=== PATIENT | female | born 1990 | race Caucasian/White ===

== ENCOUNTER 2025-01-05 16:14 | Outpatient (REF) | payer MEDICAID, SELFPAY ==
[2025-01-05 17:37] LABS: MANUAL DIFF FLAG NO
[2025-01-05 17:47] LABS: Hematocrit 40.2 % (37.0-47.0); Hemoglobin 13.1 g/dl (12.0-16.0); Imm Gran Abs Auto 0.04 X10*3/uL (0.00-0.03); Imm Gran Pct Auto 0.3 % (0.0-0.4); Lymphocytes Absolute Auto 4.0 X10*3/uL (1.2-4.9); Mean Corpuscular HGB Conc 32.6 g/dl (31.0-35.0); Mean Corpuscular Hemoglobin 26.2 pg (27.0-33.0); Mean Corpuscular Volume 80.4 fL (80.0-98.0); NRBC Abs Auto 0.000 X10*3/uL (0.0-0.012); NRBC Pct Auto 0.0 /100WBC (0.0-0.2); Platelet Count 521 X10*3/uL (160-400); Red Blood Count 5.00 X10*6/uL (4.20-5.50); White Blood Count 11.7 X10*3/uL (4.8-10.8)
[2025-01-05 18:03] LABS: Alanine Aminotransferase 20 U/L (0-31); Albumin Level 5.0 g/dL (3.5-5.0); Alkaline Phosphatase 135 U/L (39-117); Anion Gap 13 (12-20); Aspartate Amino Transferase 20 U/L (5-31); Blood Urea Nitrogen 18 mg/dL (9-16); Calcium 9.5 mg/dL (8.4-10.2); Carbon Dioxide 28 mmol/L (22-29); Chloride 107 mmol/L (96-108); Estimated Glomerular Filt Rate > 60; Iron 58 mcg/dL (30-160); Percent Iron Saturation 18 % (15-50); Potassium 3.7 mmol/L (3.3-5.1); Sodium 144 mmol/L (135-145); Total Iron Binding Capacity 328 mcg/dL (228-428); Total Protein 8.0 g/dL (6.5-8.0); Unsaturated Iron Binding 270 ug/dL
[2025-01-05 18:18] LABS: Ferritin 36 ng/mL (10-122)
[2025-01-06 07:04] LABS: Hemoglobin A1C 135.2084 umol/L; Total Hemoglobin (HGBA1C) 3523.1362 umol/L
[2025-01-09 13:38] LABS: Anti Nuclear Antibody Pattern Nuclear, Speckled; Anti Nuclear Antibody Screen POSITIVE (NEGATIVE); Anti Nuclear Antibody Titer 1:40 titer
== END 2025-01-05 16:15 | disposition home or self-care (01) ==
LOC: HO.HHCL 16:14
PROVIDERS: Internal Medicine; PCP Internal Medicine; Visit Provider Internal Medicine
DX: Z01.84 Encounter for antibody response examination (principal); M32.9 Systemic lupus erythematosus, unspecified; I10 Essential (primary) hypertension; D50.0 Iron deficiency anemia secondary to blood loss (chronic)
CPT/HCPCS: 36415; 80053; 82728; 83036; 83540; 84443; 85025; 85652; 86038; 86039

== ENCOUNTER 2025-06-03 12:14 | Outpatient (REF) | payer MEDICAID, SELFPAY ==
--- OUTSIDE RECORDS SUMMARY | 2025-06-02 15:30 | XMS_ITS | Encounter Summary ---
Author Organization [employer] Address [address] [place] [id number] Care Team Providers Care Uph[employer]ered [employer]s [employer]fter Name Role Phone Mali Buchanan NP Primary Care Provider [phone] Reason for Referral * Consultation (Routine) - Authorized Specialty Diagnoses / Procedures Referred By Fabricio shi Referred To Contact Rheumatology Diagnoses PARTH positive Mali Buchanan NP [address] [place] [address] Phone: tel: fax: [facility] Rheumatology [address] [place] [address] Phone: tel: fax: Referral ID Status Reason Start Date Expiration Date Visits Requested Visits Authorized [id number] Authorized Specialty Services Required 06/03/2026 6 6 * Imaging (Urgent) - Authorized Specialty Diagnoses / Procedures Referred By Fabricio shi Referred To Contact Radiology Diagnoses Menorrhagia with regular cycle Abnormal uterine bleeding Procedures US Pelvis Transvaginal Mali Buchanan NP [address] [place] [address] Phone: tel: fax: [facility] [address] [place] [id number] Phone: tel: fax: Referral ID Status Reason Start Date Expiration Date V isits Requested Visits Authorized [id number] Authorized 06/02/2025 06/02/2026 1 1 Encounter Details Date Type Department Care Team (Late st Contact Info) Description 06/02/2025 3:30 PM EST Office Visit [facility] [address], [place] [id number] Mali Buchanan NP [address], [place] [id number] Menorrhagia with regular cycle (Primary Dx); Class 1 obesity with body mass index (BMI) of 34.0 to 34.9 in adult, unspecified obesity type, unspecified whether serious comorbidity present; Abnormal uterine bleeding; PARTH positive Social History Tobacco Use Types Packs/Day Years Used Date Smoking Tobacco: Never Passive Smoke Exposure: Never Smokeless Tobacco: Never Depression Answer Date Recorded Patient Health Questionnaire-9 Score 2 12/15/2024 Patient Health Questionnaire-9 Score 2 12/15/2024 Last PHQ-9: Questionnaire Data Not on file 0 12/15/2024 Housing Stability Answer Date Recorded What is your housing situation today? I have mary zavala 06/02/[address] you li ve. Do you have problems with any of the following? Oven or stove not working;Water leaks 06/02/2025 Food Insecurity Answer Date Recorded Within the past 12 months, y ou worried that your food would run out before you got money to buy more: Sometimes True 2024 Within the past 12 months,th e food you bought just didn't last and you didn't have enough money to get more: Never True 06/02/2025 Transportation Answer Date Recorded In the past 12 months, has l ack of transportation kept you from medical appts, meetings, work or from getting things needed for daily living? Yes, it has kept me from medical appointments or getting medications. 06/02/2025 Utilities Answer Date Recorded In the past 12 months, has t he electric, gas, oil or water company threatened to shut off services in your home? Yes 06/02/2025 Depression Answer Date Recorded Patient Health Questionnaire-2 Score 2 12/15/2024 Internet Access Answer Date Recorded Internet Access Q1 No 06/02/2025 Internet Access Q2 My internet/Wi-Fi ac cess is not consistent or reliable 06/02/2025 Comments No Sex and Gender Information Value Date Recorded Sex Assigned at Female 12/15/2024 12:38 PM EDT Legal Sex Female 12:34 PM EDT Gender Identity Female 12/15/2024 12:38 PM EDT Sexual Orientation Straight 12/15/2024 12 :38 PM EDT documented as of this encounter Last Filed Vital Signs Vital Sign Reading Time Taken Comments Blood Pressure 146/92 06/02/2025 3:43 PM EST Pulse 128 06/02/2025 3:43 PM EST Temperature 36.5 C (97.7 F) 06/02/2025 3:43 PM EST Respiratory Rate 14 06/02/2025 3:43 PM EST Oxygen Saturation 96% 06/02/2025 3:43 PM EST Inhaled Oxygen Concentration - - Weight 91.2 kg (201 lb) 06/02/2025 3:43 PM EST Height 157.5 cm (5' 2 ) 06/02/2025 3:43 PM EST Body Mass Index 36.76 06/02/2025 3:43 PM EST documented in this encounter Functional Status * SBIRT - Alcohol Question Answer Date of Assessment Author How many times in the past y ear have you had 5 or more (for men) or 4 or more (for women) drinks in a day? 0 06/02/2025 5:18 PM EST Cierra Mora MA Score 0 06/02/2025 5:18 PM EST Cierra Murphy MA * SBIRT - Drugs Question Answer Date of Assessment Author How many times in the past y ear have you used an illegal drug or used a prescription medication for non-medical reasons? 0 06/02/2025 5:18 PM EST Cierra Mora MA Score 0 06/02/2025 5:18 PM EST Cierra Murphy MA documented as of this encounter Progress Notes * Mali Buchanan NP - 06/02/2025 3:30 PM EST Oswaldo Muñiz, age 35, female - Reports legs very swollen since starting blood pressure medication - , difficulty stopping despite desire to wean - Blood pressure remains high without medication - Labetalol previously tried, not effective for blood pressure, did not help leg swelling - Compression stockings used, owns two pairs - Menstrual periods lasting approximately 15 days each month - Reports severe pelvic pain during menstruation, described as feeling like a knife inside the uterus - IUD placed after delivery at hospital, unable to be located at gynecology visit last month (April 2025) - Unable to schedule recommended ultrasound due to work constraints - Hair and nails described as very fragile and weak - Sex life currently absent, unable to recognize self hormonally - Reports sleeping only 2-3 hours per night, total of 14 hours per week, single mother with significant stress - Sertraline (Zoloft) taken, helps relax during the day but no improvement in sleep or energy - Difficulty finding Bangl[place]hi-speaking therapist - PARTH test for lupus previously ordered, referral issues, has not received phone call or letter, denies any symptoms of lupus - Reports feeling overwhelmed, significant physical fatigue, responsible for children and household - Expresses desire for more energy, asks about iron and vitamins Problem List[1] Medical History[2] Allergies[3] Review of Systems Constitutional: Negative for activity change and appetite change. Respiratory: Negative for apnea and chest tightness. Genitourinary: Positive for menstrual problem. Negative for difficulty urinating. BP (!) 146/92 (BP Location: Right arm, Patient Position: Sitting, BP Cuff Size: Large adult) Pulse (!) 128 Temp 97.7 ??F (36.5 ??C) (Oral) Resp 14 Ht 5' 2 (1.575 m) Wt 201 lb (91.2 kg) LMP 05/17/2025 (Approximate) SpO2 96% BMI 36.76 kg/m?? Physical Exam Vitals reviewed. Constitutional: Appearance: She is obese. HENT: Head: Normocephalic and atraumatic. Nose: Nose normal. Eyes: Conjunctiva/sclera: Conjunctivae normal. Cardiovascular: Rate and Rhythm: Normal rate and regular rhythm. Pulmonary: Effort: Pulmonary effort is normal. Breath sounds: Normal breath sounds. Abdominal: Palpations: There is no mass. Tenderness: There is abdominal tenderness. There is no guarding. Musculoskeletal: Cervical back: Normal range of motion and neck supple. Neurological: General: No focal deficit present. Mental Status: She is alert. - CARDIOVASCULAR: Blood pressure noted to be slightly elevated, but not dangerous. - EXTREMITIES: Edema in lower extremities observed. Results: No visits with results within 28 Day(s) from this visit. Latest known visit with results is: Office Visit on 01/05/2025 Component Date Value Ref Range Status White Blood Count 01/05/2025 11.7 (H) 4.8 - 10.8 X10*3/uL Final Red Blood Count 01/05/2025 5.00 4.20 - 5.50 X10*6/uL Final Hemoglobin 01/05/2025 13.1 12.0 - 16.0 g/dl Final Hematocrit 01/05/2025 40.2 37.0 - 47.0 % Final Mean Corpuscular Volume 01/05/2025 80.4 80.0 - 98.0 fL Final Mean Corpuscular Hemoglobin 01/05/2025 26.2 (L) 27.0 - 33.0 pg Final Mean Corpuscular HGB Conc 01/05/2025 32.6 31.0 - 35.0 g/dl Final Red Cell Distribution Width 01/05/2025 15.3 11.0 - 16.0 % Final Platelet Count 01/05/2025 521 (H) 160 - 400 X10*3/uL Final Mean Platelet Volume 01/05/2025 8.8 (L) 9.4 - 12.3 fL Final Neutrophils Percent Auto 01/05/2025 55.1 45 - 73 % Final Imm Gran Pct Auto 01/05/2025 0.3 0.0 - 0.4 % Final Lymphocytes Percent Auto 01/05/2025 34.3 20 - 40 % Final Monocytes Percent Auto 01/05/2025 7.9 2 - 11 % Final Eosinophils Percent Auto 01/05/2025 1.9 0 - 4 % Final Basophils Percent Auto 01/05/2025 0.5 0 - 2 % Final NRBC Pct Auto 01/05/2025 0.0 0.0 - 0.2 /100WBC Final Neutrophils Absolute Auto 01/05/2025 6.4 2.0 - 8.3 x10*3/uL Final Imm Gran Abs Auto 01/05/2025 0.04 (H) 0.00 - 0.03 X10*3/uL Final Lymphocytes Absolute Auto 01/05/2025 4.0 1.2 - 4.9 X10*3/uL Final Monocytes Absolute Auto 01/05/2025 0.9 0.1 - 1.2 X10*3/uL Final Eosinophils Absolute Auto 01/05/2025 0.2 0.0 - 0.4 X10*3/uL Final Basophils Absolute Auto 01/05/2025 0.1 0.0 - 0.2 X10*3/uL Final NRBC Abs Auto 01/05/2025 0.000 0.0 - 0.012 X10*3/uL Final Ferritin 01/05/2025 36 10 - 122 ng/mL Final Iron 01/05/2025 58 30 - 160 mcg/dL Final Total Iron Binding Capacity 01/05/2025 328 228 - 428 mcg/dL Final Percent Iron Saturation 01/05/2025 18 15 - 50 % Final Unsaturated Iron Binding 01/05/2025 270 ug/dL Final Assessment & Plan Menorrhagia with regular cycle Orders: CBC auto differential; Future TSH W/Reflex to FT4; Future US Pelvis Transvaginal; Future Class 1 obesity with body mass index (BMI) of 34.0 to 34.9 in adult, unspecified obesity type, unspecified whether serious comorbidity present Orders: Comprehensive Metabolic Panel; Future Hemoglobin A1c; Future Abnormal uterine bleeding Orders: US Pelvis Transvaginal; Future PARTH positive Orders: Referral to Rheumatology; Future Assessment & Plan Menorrhagia with regular cycle: - Menorrhagia with regular cycle, ongoing for approximately 15 days per cycle. Associated with significant pelvic pain described as like a knife inside the uterus. IUD placement after delivery, currently unable to be located by manager income tax. - Ordered pelvic ultrasound to evaluate IUD position and investigate cause of abnormal bleeding andpain. Recommended scheduling ultrasound at [facility]. Will perform blood work including thyroid and anemia panel. Follow-up in 4 to 6 weeks or sooner as needed. Class 1 obesity with body mass index (BMI) of 34.0 to 34.9 in adult, unspecified obesity type, unspecified whether serious comorbidity present: - Class 1 obesity, BMI 34.0-34.9. Weight loss discussed; options limited due to ongoing . - Advised to defer pharmacologic weight loss interventions until is discontinued. Will revisit weight management options after chapter is complete. Abnormal uterine bleeding: - Abnormal uterine bleeding with prolonged menses and associated pelvic pain. Etiology to be further evaluated. - Ordered pelvic ultrasound and blood work (thyroid, anemia panel) to assess for underlying causes.Follow-up planned after results. PARTH positive: - PARTH positive blood test previously obtained. No symptoms suggestive of lupus. Referral to [facility] placed for expert interpretation of PARTH result. - Re-sent referral to [facility] for further evaluation. Advised to call back with any questions or concerns. Edema in lower extremities: - Edema in lower extremities, possibly related to antihypertensive therapy. Limited options for medication adjustment due to . - Discussed use of compression stockings; patient already has two pairs. No change in antihypertensive regimen until is discontinued. Sleep disturbance and fatigue: - Sleep disturbance and fatigue, likely multifactorial including stress, single parenting, and possible anemia or thyroid dysfunction. - Prescribed hydroxyzine for occasional use to aid sleep, with instructions to avoid overnight after use. Increased sertraline dose to 50 mg daily. Ordered blood work to evaluate for anemia and thyroid dysfunction. Advised to continue iron supplementation and vitamins if not already taking. Follow-up in 4 to 6 weeks. Depressed mood and decreased libido: - Depressed mood, decreased libido, and anhedonia. Contributing factors include stress, sleep deprivation, and general health. Sertraline may provide indirect benefit. - Increased sertraline dose to 50 mg daily. Encouraged to seek Bangladeshi- speaking therapist for additional support. Offered more acute mental health workup if feeling overwhelmed or experiencing thoughts of self-harm. Follow-up in 4 to 6 weeks. Prescription - Sertraline increased to 50 mg daily; until new prescription available, take two tablets of current strength daily - Hydroxyzine at bedtime as needed for sleep; unknown breast-milk excretion, advise to avoid overnight because of short-acting profile Current Medications[4] Based on our discussion, I have outlined the following instructions for you: - Schedule and complete a pelvic ultrasound at [facility]. - Get blood tests done to check for thyroid problems and anemia (low iron). - Continue wearing your compression stockings for leg swelling. - Do not change your blood pressure medication until you have stopped . - Take hydroxyzine at bedtime if you need help sleeping, but do not breastfeed overnight after taking it. - Take sertraline at the new dose of 50 mg every day. - Continue taking your iron tablets and vitamins if you are not already doing so. - Try to find a Bangladeshi-speaking therapist for extra support. - If you ever feel overwhelmed or have thoughts of harming yourself, ask for more immediate mental health help. - If you have any questions or concerns, call the clinic. Next appointment(s): - Follow-up in 4 to 6 weeks or sooner as needed. - Referral to [facility] placed for expert interpretation of PARTH result. - Re-sent referral to [facility] for further evaluation. This note was drafted using Ambient (AI) technology. The patient/patient's guardian has been informed and has consented to the use of this technology: Yes Visit Conducted in: Bangl[place]hi Translation by: Provided by [employer] Service ID # [id number] [1] Patient Active Problem List Diagnosis Adjustment disorder with anxious mood Primary hypertension SLE (systemic lupus erythematosus related syndrome) ([facility]) ([facility]) Iron deficiency anemia due to chronic blood loss Obesity due to excess calories with serious comorbidity Insulin controlled gestational diabetes mellitus (GDM) during , antepartum Adjustment reaction with anxiety and depression Hypertension PARTH positive [2] No past medical history on file. [3] No Known Allergies [4] Current Outpatient Medications: Blood Pressure Monitoring (Blood Pressure Cuff) [facility] [place] [place], Use daily as prescribed, Disp: 1 each, Rfl: 0 ferrous sulfate 324 (65 Fe) MG EC tablet, Take 1 tablet (324 mg) by mouth Once per day., Disp: 90 tablet, Rfl: 0 NIFEdipine CC (Adalat CC) 30 MG 24 hr tablet, Take 1 tablet (30 mg) by mouth before breakfast. Do not crush, chew, or split., Disp: 90 tablet, Rfl: 0 sertraline (Zoloft) 50 MG tablet, Take 1 tablet (50 mg) by mouth Once per day., Disp: 30 tablet, Rfl: 1 documented in this encounter Miscellaneous Notes * Assessment & Plan Note - Mali Buchanan NP - 06/02/2025 3:30 PM ESTAssociated Problem(s): PARTH positive Orders: Referral to Rheumatology; Future documented in this encounter Plan of Treatment Upcoming Encounters Date Type Department Care Team (Late st Contact Info) Description 07/02/2025 11:00 AM EST Nutrition [facility] [address] [place] [address] Danilohermelinda Geetha, RD [address] [place] [address] Scheduled Orders Name Type Priority Associated Diagnoses Orde r Schedule CBC auto differential Lab Routine Menorrhagia with regular cycle Expected: 06/02/2025 (Approximate), Expires: 06/02/2026 TSH W/Reflex to FT4 Lab Routine Menorrhagia with regular cycle Expected: 06/02/2025 (Approximate), Expires: 06/02/2026 Comprehensive Metabolic Panel Lab Routine Class 1 obesity with body mass index (BMI) of 34.0 to 34.9 in adult, unspecified obesity type, unspecified whether serious comorbidity present Expected: 06/02/2025 (Approximate), Expires: 06/02/2026 Hemoglobin A1c Lab Routine Class 1 obesity with body mass index (BMI) of 34.0 to 34.9 in adult, unspecified obesity type, unspecified whether serious comorbidity present Expected: 06/02/2025 (Approximate), Expires: 06/02/2026 US Pelvis Transvaginal Imaging Urgent Menorrhagia with regular cycle Abnormal uterine bleeding Expected: 06/02/2025, Expires: 06/02/2026 Scheduled Referrals Name Type Priority Associated Diagnoses Order Schedule Referral to Rheumatology Outpatient Referral Routine PARTH positive Expected: 06/02/2025 (Approximate), Expires: 06/02/2026 documented as of this encounter Visit Diagnoses Diagnosis Menorrhagia with regular cycle- Primary Class 1 obesity with body mass index (BMI) of 34.0 to 34.9 in adult, unspecified obesity type, unspecified whether serious comorbidity present Abnormal uterine bleeding Unspecified disorder of menstruation and other abnormal bleeding from female genital tract PARTH positive documented in this encounter Additional Health Concerns Assessment Noted Time PHQ-9 Depression Total Score: 2 12/16/19 25 2:00 PM EDT documented as of this encounter Care Teams Uph[employer]ered [employer]s [employer]fter Relationship Specialty Start Date End Date Mali Buchanan NP [address] [place] [address] PCP - General Family Medicine 01/12/25 documented as of this encounter
[2025-06-03 13:52] LABS: MANUAL DIFF FLAG NO
--- OUTSIDE RECORDS SUMMARY | 2025-06-03 14:03 | XMS_ITS | Clinical Summary ---
Author Organization [employer] Address [address] [facility] 7 [place] [address] Care Team Providers Care Bookkeeper Receptionist Name Role Phone Mali Buchanan HEIDY Primary Care Provider [phone] Allergies No known active allergies Medications * This document contains information received from the source organization and may not represent a complete record from that organization. ferrous sulfate 324 (65 Fe) MG EC tablet Take 1 tablet (324 mg) by mouth Once per day. 90 tablet 12/16/19 25 Active Blood Pressure Monitoring (Blood Pressure Cuff) misc Use daily as prescribed 1 each 12/16/19 25 Active sertraline (Zoloft) 50 MG tablet Take 1 tablet (50 mg) by mouth Once per day. 30 tablet 1 5 5:34 PM EST 06/02/20 25 026 Active multivitamin () 27-0.8 MG tablet Take 1 tablet by mouth Once per day. 30 tablet 3 5 5:34 PM EST 06/02/20 25 Active NIFEdipine CC (Adalat CC) 30 MG 24 hr tablet Take 1 tablet (30 mg) by mouth before breakfast. Do not crush, chew, or split. 90 tablet 5 5:34 PM EST 06/02/20 25 Active sertraline (Zoloft) 25 MG tablet Take 1 tablet (25 mg) by mouth Once per day. 90 tablet 1 12/16/19 25 025 Discontinued NIFEdipine CC (Adalat CC) 30 MG 24 hr tablet Take 1 tablet (30 mg) by mouth before breakfast. Do not crush, chew, or split. 90 tablet 02/27/20 25 025 Discontinued(Re order (will not trigger notification to Pharmacy)) Active Problems Problem Noted Date Diagnosed Date Hypertension 01/12/2025 Assessment & Plan (02/14/2025 1:55 PM EDT): Continue to measure at home, Focus on rest and sleep reduction, no change to meds today. PARTH positive 01/12/2025 Assessment & Plan (06/02/2025 4:54 PM EST): Orders: Referral to Rheumatology; Future Assessment & Plan (02/14/2025 1:56 PM EDT): Referral to rheumatology Adjustment disorder with anxious mood 12/15/2024 Assessment & Plan (02/14/2025 1:56 PM EDT): Reviewed options of management referral to Primary hypertension 12/15/2024 Assessment & Plan (12/15/2024 5:30 PM EDT): Uncontrolled today erliny bc she didn't take the meds this morning. DC nifedipine due to side effects (leg edema) and start labetalol 100 mg twice daily and follow-up BP with the nurse in 2 to 3 weeks. If BP is not controlled, labetalol can be increased to 200 mg twice daily and follow-up with me or new PCP 3 to 4 weeks later. Counseled re low salt diet/increase moderate physical activity. Check home BP BIW and prn CP/FRANKLIN/RAPHAEL Non smoking patient. SLE (systemic lupus erythema tosus related syndrome) ([facility]) 12/15/2024 Assessment & Plan (12/15/2024 5:31 PM EDT): Unclear diagnosis, will obtain records from [facility] and obtain labs Follow-up with your PCP Iron deficiency anemia due to chronic blood loss 12/15/2024 Assessment & Plan (12/15/2024 5:31 PM EDT): Hb is fairly normal but she continues to have vaginal bleeding, she will continue on Iron supplementation and fu w FINANCE ATTORNEY at [facility]. Advised to fu with new PCP Obesity due to excess calories with serious cassandra rbidity 12/15/2024 Assessment & Plan (12/15/2024 2:52 PM EDT): She's delivery Discussed re weight reduction options including exercise, life style modifications, diet. Recommended to decrease soda and sugary beverage consumption, increase protein intake with meals (at least 1 portion of protein with each meal) to assist with satiety, increase dietary fiber Recommended at least 150 min/week of moderate intensity exercise. Insulin controlled gestation al diabetes mellitus (GDM) during , antepartum 12/15/2024 Assessment & Plan (12/15/2024 5:30 PM EDT): Check BMP and A1c, she has been off medications after delivery. Adjustment reaction with anxiety and depression 12/15/2024 Assessment & Plan (12/15/2024 5:32 PM EDT): Patient with significant S/S depression, DC fluoxetine and start sertraline and follow-up with new PCP in 4 to 6 weeks Patient was evaluated today by counselor and will continue to follow-up, she feels safe at home and is able to reach out for safety, crisis number was given to her. I offered referral to case management coordinator or some of the community litigation paralegal programs but she determines she is connected already with them. Resolved Problems Problem Noted Date Diagnosed Date Resolved Date FANNIE (generalized anxiety disorder) 12/15/2024 12/15/2024 Encounters Date Type Department Care Team Description 06/02/2025 3:30 PM EST Office Visit [facility] MED[facility]INE [address] [place] [id number] Mali Buchanan NP Menorrhagia with regular cycle (Primary Dx); Class 1 obesity with body mass index (BMI) of 34.0 to 34.9 in adult, unspecified obesity type, unspecified whether serious comorbidity present; Abnormal uterine bleeding; PARTH positive 06/02/2025 Travel 05/18/2025 Telephone [facility] MEDICINE [address] [place] [address] Mali Buchanan NP Referral-Rheumatology 05/13/[address] [facility] [address] [place] [address] Mali Buchanan NP Nurse Triage 04/16/2025 Telephone [facility] MEDICINE [address] [place] [address] Mali Buchanan NP Chart Prep 04/16/2025 Telephone [facility] [address] [place] [address] Appointment Request 03/09/2025 Telephone [facility] MED[facility]INE [address] [place] [address] Isabel Huitron RN from Last 3 Months Social History Tobacco Use Types Packs/Day Years Used Date Smoking Tobacco: Never Passive Smoke Exposure: Never Smokeless Tobacco: Never Tobacco Cessation:Counseling Given: Not Answered Depression Answer Date Recorded Patient Health Questionnaire-9 [...] Orientation Straight 12/15/2024 12 :38 PM EDT Last Filed Vital Signs Vital Sign Reading [...] Mass Index 36.76 06/02/2025 3:43 PM EST Plan of Treatment Upcoming Encounters Date Type Department Care Team (Late st Contact Info) Description 07/02/2025 11:00 AM EST Nutrition [facility] DIABETES/NTRN [address] [place] [address] Geetha Arcos, RD [address] [place] [address] Health Maintenance Due Date Last Done Comments HIV Screening 1989 Lipid Panel 1989 Family Planning (PISQ) 2004 Hepatitis C Screening 2007 Hepatitis B Vaccines (1 of 3 - 19+ 3-dose series) 2008 Pap Smear 2010 Cervical Cancer Screening 2019 HPV/Cotest 2019 COVID-19 Vaccine (1 - 2024-2 6 season) 2025 Influenza Vaccine (#1) 2025 05/06/2024 HPV Vaccines (2 - 3-dose series) 02/27/2025 01/30/2025, 01/30/2025 Depression Screening 12/15/2025 12/15/2024, 12/15/2024 Diabetes: Hemoglobin A1C 01/05/2026 01/05/2025 Alcohol/Substance Use Screening 06/02/2026 06/02/2025 Disability Screening 06/02/2026 06/02/2025 SDOH Screening 06/02/2026 06/02/2025 Tobacco Screening 06/02/2026 06/02/2025 DTaP/Tdap/Td Vaccines (2 - T d or Tdap) 07/02/2034 07/02/2024 Zoster Vaccines (1 of 2) 2039 RSV Patients and Patients Aged 60 years or older (1 - 1-dose 75+ series) 2064 HIB Vaccines Aged Out No longer eligi ble based on patient's age to complete this topic Hepatitis A Vaccines Aged Out No long er eligible based on patient's age to complete this topic IPV Vaccines Aged Out No longer eligi ble based on patient's age to complete this topic Meningococcal B Vaccine Aged Out No l onger eligible based on patient's age to complete this topic Meningococcal Vaccine Aged Out No javier rodolfo eligible based on patient's age to complete this topic Pneumococcal Vaccine: Pediatrics (0 to 5 Years) and At-Risk Patients (6 to 49) Years Aged Out No longer eligible b ased on patient's age to complete this topic RSV under 20 months Aged Out No longe r eligible based on patient's age to complete this topic Rotavirus Vaccines Aged Out No longer eligible based on patient's age to complete this topic Procedures Procedure Name Priority Date/Time Associated Diagnosis Comments HEMOGLOBIN A1C Routine 01/05/2025 4:24 PM EDT Insulin controlled gestational diabetes mellitus (GDM) during , antepartum from Last 3 Months or Most Recently Relevant to Health Maintenance Results * Hemoglobin A1c (01/05/2025 4:24 PM EDT) Hemoglobin A1c 5.7 <6.0 % [facility] Comment:Hemoglobin A1C Refer ence Range Adults: 4.8 - 6.0 % Non diabetic: < 6.0 % Goal: < 7.0 %Additional Action Suggested: > 8.0 %Note: Hemoglobin A1c results are invalid for patients with abnormal amounts of HbF. Blood transfusions may impact the HbA1c concentration in the patient sample. Estimated Average Glucose 117 mg/dL [facility] Comment:eAG = Estimated ave rage glucose which is %A1C expressed asaverage glucose, using the formula of the [id number] Glucose study (ADAG), Diabetes Care, Vol.31,#8,2007 Blood Venous blood specimen / Unknown 01/05/2025 4:24 PM EDT 01/05/2025 5:35 PM EDT Parth Snider MD LAB BLOOD ORDERABLES Fin al Result [facility] [address] [place] [address] [phone] from Last 3 Months or Most Recently Relevant to Health Maintenance Insurance [facility] C3 Care Teams Bookkeeper Receptionist Relationship Specialty Start Date End Date Mali Buchanan NP [address] [place] [address] PCP - General Family Medicine 01/12/25
--- OUTSIDE RECORDS SUMMARY | 2025-06-03 14:03 | XMS_ITS | Encounter Summary ---
Author Organization [employer] Address [address] [place] [address] Care Team Providers Care Driver Education Instructor Name Role Phone Mali Buchanan NP Primary Care Provider [phone] Reason for Visit * Reason Onset Date Comments Nurse Triage 02/23/2025 Encounter Details Date Type Department Care Team (Late st Contact Info) Description 02/23/2025 Telephone [facility] MEDICINE [address] [place] [address] Mali Buchanan NP [address] [place] [address] Nurse Triage Social History Tobacco Use Types Packs/Day Years Used Date Smoking Tobacco: Never Depression Answer Date Recorded Patient Health Questionnaire-9 Score 2 12/15/2024 Patient Health Questionnaire-9 Score 2 12/15/2024 Last PHQ-9: Questionnaire Data Not on file 0 12/15/2024 Depression Answer Date Recorded Patient Health Questionnaire-2 Score 2 12/15/2024 Comments No Sex and Gender Information Value Date Recorded Sex Assigned at Female 12/15/2024 12:38 PM EDT Legal Sex Female 12:34 PM EDT Gender Identity Female 12/15/2024 12:38 PM EDT Sexual Orientation Straight 12/15/2024 12 :38 PM EDT documented as of this encounter Miscellaneous Notes * Telephone Encounter - Samantha Eddy RN - 02/23/2025 4:27 PM EDT Triage call [place] [id number]. Pt reports BP of 140/90 this morning. Pt has been taking labetolol 100mg bid as ordered. Pt reportssince of last child in August, BP has been high. Pt symptomatic with headache. Pt is also inquiring about referral. 01/13/25 is noted on chart as a referral was sent via fax to rheumatology/ arthritis treatment center [facility]. Pt is given the phone number: Office: [facility] [address] [place] [address] Tel. [phone] , Pt will call to ask if apt available yet. Pt is given ASK apt 02/26/25 @ 10am with LATOYA Melton as rescheduled from missed apt 02/23/25. Protocol Used: Blood Pressure - High (Adult) Protocol-Based Disposition: See in Office or Video Visit within 2 Weeks Video visit not offered Positive Triage Question: * Systolic BP >= 130 OR Diastolic >= 80, and is taking BP medications * All higher-acuity triage questions were negative Care Advice Discussed: * Reassurance and Education - BP Under 130 / 80 and Taking BP Meds * High Blood Pressure * Reasons To Call Back - Headache, blurred vision, difficulty talking, or difficulty walking occurs - Chest pain or difficulty breathing occurs - You want to go into the office for a blood pressure check - You become worse * Telephone Encounter - Lambert Ramos - 02/23/2025 3:43 PM EDT Symptom: High Blood Pressure - Caller Reports Outcome: Talk to a nurse or provider within 15 minutes Reason: Severe headache The caller accepted this outcome. Contact pt at [phone] (bengali, hungarian) documented in this encounter Plan of Treatment Upcoming Encounters Date Type Department Care Team (Late st Contact Info) Description 07/02/2025 11:00 AM EST Nutrition [facility] DIABETES/NTRN [address] [place] [address] [place] [address] documented as of this encounter Visit Diagnoses Not on filedocumented in this encounter Additional Health Concerns Assessment Noted Time PHQ-9 Depression Total Score: 2 12/16/19 25 2:00 PM EDT documented as of this encounter Care Teams Driver Education Instructor Relationship Specialty Start Date End Date Mali Buchanan NP [address] [place] [address] PCP - General Family Medicine 01/12/25 documented as of this encounter
--- OUTSIDE RECORDS SUMMARY | 2025-06-03 14:03 | XMS_ITS | Encounter Summary ---
Author Organization [employer] Address [address] [facility] [address] [place] [address] Care Team Providers Care Economic Development Manager Name Role Phone Mali Buchanan HEIDY Primary Care Provider [phone] Encounter Details Date Type Department Care Team (Latest Contact Info) Description 06/02/2025 Travel Social History Tobacco Use Types Packs/Day Years [...] PM EDT documented as of this encounter Plan of Treatment Upcoming Encounters Date Type Department Care Team (Late st Contact Info) Description 07/02/2025 11:00 AM EST Nutrition [facility] DIABETES/NTRN [address] [place], [place] [phone] Geetha Arcos RD [address] [place] [address] documented as of this encounter Visit Diagnoses Not on filedocumented in this encounter Additional Health Concerns Assessment Noted Time PHQ-9 Depression Total Score: 2 12/16/19 2:00 PM EDT documented as of this encounter Care Teams Economic Development Manager Relationship Specialty Start Date End Date Mali Buchanan NP [address] [place] [address] PCP - General Family Medicine 01/12/25 documented as of this encounter
[2025-06-03 14:07] LABS: Hematocrit 42.7 % (37.0-47.0); Hemoglobin 13.8 g/dl (12.0-16.0); Imm Gran Abs Auto 0.03 X10*3/uL (0.00-0.03); Imm Gran Pct Auto 0.3 % (0.0-0.4); Lymphocytes Absolute Auto 3.5 X10*3/uL (1.2-4.9); Mean Corpuscular HGB Conc 32.3 g/dl (31.0-35.0); Mean Corpuscular Hemoglobin 27.6 pg (27.0-33.0); Mean Corpuscular Volume 85.4 fL (80.0-98.0); NRBC Abs Auto 0.000 X10*3/uL (0.0-0.012); NRBC Pct Auto 0.0 /100WBC (0.0-0.2); Platelet Count 369 X10*3/uL (160-400); Red Blood Count 5.00 X10*6/uL (4.20-5.50); White Blood Count 11.2 X10*3/uL (4.8-10.8)
[2025-06-03 14:55] LABS: Alanine Aminotransferase 15 U/L (0-31); Albumin Level 4.7 g/dL (3.5-5.0); Alkaline Phosphatase 114 U/L (39-117); Anion Gap 10 (12-20); Aspartate Amino Transferase 18 U/L (5-31); Blood Urea Nitrogen 18 mg/dL (9-16); Calcium 9.2 mg/dL (8.4-10.2); Carbon Dioxide 27 mmol/L (22-29); Chloride 108 mmol/L (96-108); Estimated Glomerular Filt Rate > 60; Potassium 4.2 mmol/L (3.3-5.1); Sodium 141 mmol/L (135-145); Total Protein 7.3 g/dL (6.5-8.0)
[2025-06-03 15:01] LABS: Ferritin 49 ng/mL (10-122)
== END 2025-06-03 12:15 | disposition home or self-care (01) ==
LOC: HO.HHCL 12:14
PROVIDERS: Internal Medicine; PCP Nurse Practitioner Family; Visit Provider Nurse Practitioner Family
DX: D50.0 Iron deficiency anemia secondary to blood loss (chronic) (principal); M32.9 Systemic lupus erythematosus, unspecified; N92.0 Excessive and frequent menstruation with regular cycle; E66.811 Obesity, class 1; Z68.34 Body mass index [BMI] 34.0-34.9, adult
CPT/HCPCS: 36415; 80053; 82728; 83036; 84443; 85025